=== PATIENT | female | born 1980 | race Caucasian/White ===

== ENCOUNTER 2018-10-17 05:56 | Day surgery (SDC) | payer BC ==
[~2018-10-17] VITALS: Ht 157.5 cm; Wt 79.4 kg
[2018-10-17 06:33] VITALS: Ht 157.5 cm; Wt 79.4 kg
[2018-10-17 07:31] VITALS: BP 110/74; PULSE 70; RESP 24
[2018-10-17] MEDS ORDERED: MIDAZOLAM 1 MG/ML 2 ML INJ ONE (08:06)
[2018-10-17] MEDS ORDERED: FENTAnyl 50 MCG/ML VIAL ONE (08:06)
[2018-10-17 08:35] VITALS: BP 104/64; RESP 22
--- NOTE | 2018-10-17 10:28 | CONS ---
DATE OF ADMISSION: 10/17/2018 DATE OF CONSULTATION: PATIENT NAME: CLARENCE BAUER Dear Dr. Blackwood: I thank you very much for this kind referral. HISTORY OF PRESENT ILLNESS: Ms. Clarence Magaña is a 38-year-old female patient who has been referred to me for further evaluation of upper abdominal pain, not responding to various medications including omeprazole, pantoprazole, and Nexium. The patient had abdominal ultrasound and CT scan do ne and according to her, they were normal. No past history of peptic ulcer disease. Not on nonstero idal anti-inflammatory agents. No history of gallstones or liver disease. The patient also has righ t lower quadrant abdominal pain. The patient states she had a colonoscopy done 1 year ago, and no co jemal neoplasm was identified. Not a hypertensive or diabetic. No heart disease, lung problem, or kid clarissa disease. She is status post tubal ligation. She also had 2 sections. SOCIAL HISTORY: Nonsmoker. No alcohol abuse. FAMILY HISTORY: No family history of gastrointestinal tract neoplasm. ALLERGIES: NO DRUG ALLERGIES. MEDICATIONS: None. PHYSICAL EXAMINATION: VITAL SIGNS: She is 5 feet 2 inches tall and weighs 163 pounds. HEART: Normal heart sounds. LUNGS: Clear. ABDOMEN: Soft, no masses. Normal bowel sounds. NEUROLOGIC: Normal neurological exam. IMPRESSION: 1. Upper abdominal pain, not responding to various medications including omeprazole, pantoprazole, a nd Nexium. 2. The patient had abdominal ultrasound and CT scan done and according to her, they were normal. 3. She had a colonoscopy 1 year ago, and no colon neoplasm was identified. 4. Status post tubal ligation. 5. Status post sections. PLAN: Endoscopy for further evaluation. The procedure and possible complications are well explained to the patient. She understands and cons ents to the procedure. I thank you once again. With warmest personal regards, Dictated By: ESPERANZA PALMER/IHSAN Conf#: [id number] DID#: [id number] CC: Dr. Blackwood;*EndCC*
== END 2018-10-17 15:36 | disposition home or self-care (01) ==
LOC: GIL 05:56
PROVIDERS: ATTEND Internal Medicine Gastroenterology
DX: K29.50 Unspecified chronic gastritis without bleeding (principal); B96.81 Helicobacter pylori [H. pylori] as the cause of diseases classified elsewhere
CPT/HCPCS: 43239; 84703; 88305; 88312; J2250; J3010